=== PATIENT | male | born 1965 | race Caucasian/White ===

== ENCOUNTER 2019-03-15 15:24 | Outpatient (CLI) | payer SELFPAY ==
--- NOTE | 2019-03-15 18:09 | Diagnostic Imaging Report ---
KIRT TAPIA [facility] [address] [facility].[address] [id number] Report Submission Date: March 15, 2019 4:12:18 PM CDT Patient Study Name: HUNTER ABRAMS Date: March 15, 2019 3:34:17 PM CDT Modality Type: DX Gender: M Description: CALCANEUS 2 VIEWS OR MORE : 65 Institution: [facility] Physician: KIRT TAPIA Examination: Plain film calcaneus History: FELL ON HEELS YESTERDAY, LANDED ON A HEAVY EQUIPMENT BLADE. LEFT WORSE THAN RIGHT Findings: 2 views of the right and left calcaneus demonstrates normal cortical margins. No fracture or dislocation. Posterior spurs. No soft tissue swelling. No joint effusion. Impression: Calcaneal spurs. No acute osseous process. Electronically signed on March 15, 2019 4:12:18 PM CDT by: Tony MANJARREZ
== END 2019-03-15 15:25 ==
LOC: RAD 15:24
PROVIDERS: ATTEND Family Medicine
DX: M77.32 Calcaneal spur, left foot (principal); M77.31 Calcaneal spur, right foot; M79.671 Pain in right foot; M79.672 Pain in left foot
CPT/HCPCS: 73650